=== PATIENT | male | born 1990 | race Caucasian/White ===

== ENCOUNTER 2016-11-30 12:57 | Day surgery (SDC) | payer OTHER ==
[~2016-11-30] VITALS: Ht 177.8 cm; Wt 77.9 kg
[2016-11-30] MEDS ORDERED: ZOC10 PO (14:04)
[2016-11-30 14:10] VITALS: Ht 177.8 cm; Wt 77.9 kg
[2016-11-30 14:33] VITALS: BP 112/69; PULSE 72; RESP 18
[2016-11-30] MEDS ORDERED: FENTAnyl 50 MCG/ML VIAL ONE (15:24)
[2016-11-30] MEDS ORDERED: PROPOFOL 20 ML ONE (15:24)
[2016-11-30] MEDS ORDERED: MIDAZOLAM 1 MG/ML 2 ML INJ ONE ×2 (15:24)
[2016-11-30 16:20] VITALS: BP 103/66; PULSE 61; RESP 18
--- NOTE | 2016-11-30 19:17 | GILP ---
DATE OF PROCEDURE: NAME OF PROCEDURE: Colonoscopy with biopsies. SURGEON: Vero Benoit MD HISTORY AND INDICATIONS: The patient is being evaluated for episodic diarrhea and a very strong fam benji history of colon cancer. PREMEDICATION: Monitored anesthesia care by anesthesiologist. INSTRUMENT USED: Olympus colonoscope. PREPARATION: Adequate. TECHNIQUE: After informed consent, with the patient/relatives understanding the procedure, its mary cations potential risks and complications, including but not limited to: allergic reaction, bleeding , perforation, infection, missed lesions and after all pertinent questions were answered to the cynthia ent's satisfaction, the patient/relatives signed the witnessed informed consent. Following this, premedication was administered slowly IV push by under careful cardiovascular and re spiratory monitoring with pulse oximetry, automatic blood pressure and night monitor. Once the sedativ e effect was achieved, the patient was placed in the left lateral decubitus position, digital rectal examination was performed. The colonoscope was then introduced and advanced under visual control th roughout all segments of the colon including: the rectum, sigmoid, descending colon, splenic flexure , transverse colon, hepatic flexure, ascending colon and finally reaching the cecum which was clearl y identified by transillumination, finger indentation and the ileocecal valve. Careful examination o f the mucosa of the lower gastrointestinal tract both on insertion as well as withdrawal of the inst rument disclosed the following findings: Rectal Examination: No evidence of perirectal disease, no masses. Colonic Mucosa: The colonic mucosa is essentially unremarkable throughout. The ileocecal valve was clearly identified and appears unremarkable. The instrument was withdrawn, re-examining the mucosa in detail. No additional abnormalities are noted with exception of moderate-sized internal hemorrh oids. Biopsies were obtained randomly in the right and left side of the colon to rule out microscop ic, lymphocytic or collagenous colitis. The instrument was then withdrawn. The patient tolerated the procedure well and was transferred out of the [facility]oscopy [facility] awake and in good condition to continue recovery under observation. PLAN: The patient will be continued on present regimen. Pathology will be reviewed as soon as mando maria. He is due for genetic testing given his father's history of colon cancer x3, and he should h ave surveillance colonoscopy in 5 years. Dictated By: VERO BENOIT MS/JORGE Conf#: [id number] DID#: [id number]
== END 2016-11-30 16:33 | disposition home or self-care (01) ==
LOC: GIL 12:57
PROVIDERS: ATTEND Internal Medicine Gastroenterology
DX: Z12.11 Encounter for screening for malignant neoplasm of colon (principal); Z80.0 Family history of malignant neoplasm of digestive organs; K64.8 Other hemorrhoids
CPT/HCPCS: 45380; 88305; J2250; J3010